=== PATIENT | male | born 1960 | race Caucasian/White ===

== ENCOUNTER 2016-05-08 11:34 | Day surgery (SDC) | payer BC ==
[2016-05-03 09:40] LABS: HEMATOCRIT 39.8 % (40.0-51.0); HEMOGLOBIN 13.5 g/dL (13.6-17.8)
[2016-05-03 09:56] LABS: BUN (BLOOD UREA NITROGEN) 13 MG/DL (6-23); CALCIUM, SERUM 9.1 MG/DL (8.5-10.4); CHLORIDE, SERUM 104 MMOL/L (96-112); CO2 (CARBON DIOXIDE) 31 MMOL/L (24-34); CREATININE 1.31 MG/DL (0.70-1.30); GFR AFRICAN AMERICAN 71 ML/MIN (>=60); GFR NON AFRICAN AMERICAN 61 ML/MIN (>=60); GLUCOSE, SERUM 103 MG/DL (60-99); POTASSIUM, SERUM 4.5 MMOL/L (3.5-5.3); SODIUM, SERUM 140 MMOL/L (135-148)
--- NOTE | ~2016-05-08 | OP ---
Record Of [facility] [address] [place]. [address] NAME: CATHY JANSEN : 62 STATUS : REG [facility] [place] PAT#: [id number] AGE: 55 ADM/REG DATE : 05/08/16 MR#: [id number] REPORT SERV DATE: 05/08/16 DICTATED BY: Sol VILLAR DATE: 05/08/16 REPORT STATUS : Draft TRANSCRIBED BY: CHANDUL DATE: 05/08/16 DATE OF PROCEDURE: 05/08/2016 PREOPERATIVE DIAGNOSIS: Elevated prostate specific antigen. PREOPERATIVE DIAGNOSIS: Elevated prostate specific antigen. PROCEDURE: Transrectal ultrasound-guided needle biopsy of the prostate. SURGEON: Sol Villar M.D. ANESTHESIA: MAC. COMPLICATIONS: None. DRAINS: None. BRIEF HISTORY: Mr. Jansen is a 55-year-old white male with a history of elevated PSA. He has had two prior negative biopsies in 2011. His PSA recently was 4.86, 13% free, and he is here for repeat biopsy. The risks of bleeding, infection, anesthesia, injury to adjacent organs, inability to detect cancer even if present, etc. were all discussed. There were no unanswered questions. He received appropriate preoperative antibiotic prophylaxis and an enema. PROCEDURE IN DETAIL: Under excellent MAC anesthesia, the patient was placed in a left lateral decubitus position. Transrectal ultrasonography was performed. It revealed a symmetric gland with some right-sided calcifications. The gland measured 26.8 mL. A total of fourteen biopsies were taken, two from the left base, three from the left mid gland, two from the left apex, similarly two from the right base, three from the right mid gland, two from the right apex. The patient tolerated the procedure well and will be discharged as an outpatient with the following instructions. DISCHARGE INSTRUCTIONS: 1. Home today. 2. Call for excessive bleeding or fever greater than 101. Otherwise, follow up in my office in one week to review pathology. JARED/JASPAL Sol Villar M.D. / [id number] Record Of [facility] [address] [address] NAME: CATHY JANSEN : 62 STATUS : REG [facility] [place] PAT#: [id number] AGE: 55 ADM/REG DATE : 05/08/16 MR#: [id number] REPORT SERV DATE: 05/08/16 DICTATED BY: Sol VILLAR DATE: 05/08/16 REPORT STATUS : Draft TRANSCRIBED BY: MODL DATE: 05/08/16 CC: Jessica Dexter M.D.
[~2016-05-08 11:34] MED LIST: ADVAIR250 INH; ALLEGRA180 PO; LOTE20 PO; SINGULAIR1 PO
== END 2016-05-08 15:10 | disposition home or self-care (01) ==
LOC: SDC 11:34
PROC: 0VB07ZX Excision of Prostate, Via Natural or Artificial Opening, Diagnostic (ICD-10-PCS; principal; 2016-05-08 12:45)
DX: R97.20 Elevated prostate specific antigen [PSA] (principal); I10 Essential (primary) hypertension; J45.909 Unspecified asthma, uncomplicated; K64.9 Unspecified hemorrhoids; Z87.442 Personal history of urinary calculi; Z88.2 Allergy status to sulfonamides; Z79.51 Long term (current) use of inhaled steroids; Z79.899 Other long term (current) drug therapy; Z98.49 Cataract extraction status, unspecified eye; Z98.890 Other specified postprocedural states
CPT/HCPCS: 76872; 76942; 80048; 85014; 85018; 88305; 93005; J2250; J2405; J3010